=== PATIENT | female | born 2000 ===

== ENCOUNTER 2023-03-09 08:18 | Outpatient (RCR) | payer OTHER | END 2023-03-21 | disposition home or self-care (01) | LOC: MKS.ESL.PT | DX: M54.42 Lumbago with sciatica, left side (principal); M25.562 Pain in left knee ==

== ENCOUNTER 2023-04-15 15:15 | Outpatient (RCR) | payer OTHER | END 2023-04-21 | disposition home or self-care (01) | LOC: MKS.ESL.PT | DX: M54.42 Lumbago with sciatica, left side (principal); M25.562 Pain in left knee ==

== ENCOUNTER → 2023-06-14 | Outpatient (CLI) | payer OTHER | LOC: MHCPAIN 08:14 | DX: M54.16 Radiculopathy, lumbar region (principal); M51.26 Other intervertebral disc displacement, lumbar region | CPT/HCPCS: G0463 ==